=== PATIENT | female | born 1965 ===

== ENCOUNTER 2017-02-28 10:16 | Day surgery (SDC) | payer BC ==
[2017-02-28] VITALS (8 sets, daily range): BP systolic 114–126; BP diastolic 74–88
[~2017-02-28] VITALS: Ht 144.8 cm; Wt 53.1 kg
--- NOTE | 2017-02-28 06:51 | Anethesia Preoperative Eval ---
Anesthesia Pre-op PMH/ROS General Date of Evaluation: Feb 28, 2017 Time of Evaluation: 06:50 Anesthesiologist: agustin ASA Score: ASA 3 Mallampati Score Class I : Soft palate, uvula, fauces, pillars visible Class II: Soft palate, uvula, fauces visible Class III: Soft palate, base of uvula visible Class IV: Only hard plate visible Mallampati Classification: Class II Surgeon: luisa Diagnosis: colon screening Surgical Procedure: colonoscopy Anesthesia History: none Social History: smoking - nonsmoker Family History: no anesthesia problems Allergies: Coded Allergies: CHLORHEXIDINE (Verified Allergy, Intermediate, rash , 02/28/17) Uncoded Allergies: CT SCAN DYE (Allergy, Intermediate, HEADACHE, 02/28/17) Medications: see eMAR Past Medical History Pulmonary: Reports: asthma Anesthesia Pre-op Phys. Exam Physician Exam Last Vital Signs Date Time Temp Pulse Resp B/P (MAP) Pulse Ox O2 Delivery O2 Flow Rate FiO2 02/28/17 10:48 98.1 76 18 120/77 99 Room Air Constitutional: NAD Neurologic: CN 2-12 intact Cardiovascular: RRR Respiratory: CTA Gastrointestinal: S/NT/ND Airway Exam Mallampati Score: Class II MO: full Neck: supple TMD: 2fb ROM: full Teeth: intact Anesthesia Pre-op A/P Risk Assessment & Plan Assessment: asa3 Plan: mac Status Change Before Surgery: No Pre-Antibiotics Drug: SU Jacobo Feb 28, 2017 06:51
[~2017-02-28 10:16] MED LIST: LR 1000ml 1,000 ML IVLG SCH
[2017-02-28] MEDS ORDERED: PROAIR HFA8.5 GM INH (10:44)
[2017-02-28] MEDS ORDERED: ZYRTEC10 M3 ORAL (10:44)
[2017-02-28] MEDS ORDERED: SINGULAIR10 MG ORAL (10:44)
[2017-02-28] MEDS ORDERED: LR 1000ml ONE (11:30)
[2017-02-28] MEDS ORDERED: Propofol 200mg/20ml IV ONE (11:30)
[2017-02-28] MEDS ORDERED: Lidocaine 1% MPF 10mg/ml 5ml ONE (11:30)
--- NOTE | 2017-02-28 11:35 | Pre-Procedure Note/Attestation ---
Pre-Procedure Note/Attestation Complete Prior to Procedure Planned Procedure: not applicable Procedure Narrative: colon Indications for Procedure Pre-Operative Diagnosis: screening Attestation I attest that I discussed the nature of the procedure; its benefits; risks and complications; and alternatives (and the risks and benefits of such alternatives ), prior to the procedure, with the patient (or the patient's legal printing sales representative). I attest that, if there was a reasonable possibility of needing a blood transfusion, the patient (or the patient's legal printing sales representative) was given the [facility] standardized written summary, pursuant to the Berny Meenu Blood Safety Act ([place] Health and Safety Code # 1645, as amended). I attest that I re-evaluated the patient just prior to the surgery and that there has been no change in the patient's H&P, except as documented below: DIXIE BLACKBURN Feb 28, 2017 11:35
--- NOTE | 2017-02-28 12:11 | Endoscopy Procedure Note ---
Endoscopy Procedure Note Indication for Procedure: screen Procedures Performed: colonoscopy Operative Findings/Diagnosis: diverticulosis Specimen: none Pt Tolerated Procedure Well: Yes Estimated Blood Loss: none Anesthesiologist: Jody Anesthesia: MAC, moderate sedation Medication Given: see anesthesia record Implant(s) used?: No 50 yrs or older w/o bx or poly: Yes 10yrs. F/U not recommended: Yes If not recommended, why?: 10 yrs. F/U needed: Yes 18 years or older w/prev. colo: No <3yrs. since last colonoscopy: No Med reason:<3 yrs.: System Reason:<3 yrs.: Last colonoscopy >= to 3yrs: Yes DIXIE BLACKBURN Feb 28, 2017 12:11
--- NOTE | 2017-02-28 12:19 | Brief Operative Note ---
Immediate Post Operative Note Operative Note Chief Complaint: screen Pre-op Diagnosis: screening Procedure: colon , screening Post-op Diagnosis: diverticulosis Surgeon: luisa Anesthesiologist: Wilver Peoples Anesthesia: MAC Specimen: none Complications: none Condition: stable Fluids: see report Estimated Blood Loss: none Implant(s) used?: No DIXIE BLACKBURN Feb 28, 2017 12:19
--- NOTE | 2017-02-28 12:20 | Short Stay Surgery H&P ---
History of Present Illness History of Present Illness Chief Complaint see typed H&P HPI Bobo Bhakta is a 51 year old female who was admitted on for Colon Screening Patient History Allergies: Coded Allergies: CHLORHEXIDINE (Verified Allergy, Intermediate, rash , 02/28/17) Uncoded Allergies: CT SCAN DYE (Allergy, Intermediate, HEADACHE, 02/28/17) PAST MEDICAL HISTORY: Past Surgeries: Social History: Medication History Scheduled Albuterol Sulfate* (Proair Hfa*), 2 PUFFS INH NEEDED, (Reported) Cetirizine Hcl (Zyrtec), 10 MG ORAL DAILY, (Reported) Montelukast Sodium* (Singulair*), 10 MG ORAL DAILY, (Reported) Physical Exam Vital Signs Last Vital Signs Date Time Temp Pulse Resp B/P (MAP) Pulse Ox O2 Delivery O2 Flow Rate FiO2 02/28/17 10:48 98.1 76 18 120/77 99 Room Air Plan Attestation Are the patient's medical conditions optimized for surgery? DIXIE BLACKBURN Feb 28, 2017 12:20
[2017-02-28] MEDS ORDERED: LR 1000ml 1,000 ML IVLG SCH (12:29)
[2017-02-28] MEDS ORDERED: fentaNYL 100 mcg/2 mL IV PRN (12:30)
[2017-02-28] MEDS ORDERED: Atropine Inj 1mg/10ml Syr IV PRN (12:30)
[2017-02-28] MEDS ORDERED: DiphenhydrAMINE 50mg/ml Inj IVP PRN (12:30)
[2017-02-28] MEDS ORDERED: Midazolam 2mg/2ml Inj IVP PRN (12:30)
--- NOTE | 2017-02-28 12:32 | Immediate Post-Op Evaluation ---
Immediate Post-Op Evalulation Immediate Post-Op Evalulation Procedure: colonoscopy Date of Evaluation: Feb 28, 2017 Time of Evaluation: 12:30 IV Fluids: 450ml lr Blood Products: none Estimated Blood Loss: negligible Blood Pressure Systolic: 123 Blood Pressure Diastolic: 80 Pulse Rate: 62 Respiratory Rate: 18 O2 Sat by Pulse Oximetry: 100 Temperature (Fahrenheit): 97.1 Pain Score (1-10): 0 Nausea: No Vomiting: No Complications none Patient Status: awake, reacts, patent Hydration Status: adequate Drug: SU Jacobo Feb 28, 2017 12:32
--- NOTE | 2017-02-28 12:33 | 48 Hour Post Anesthesia Eval ---
Post Anesthesia Evaluation Procedure: colonoscopy Date of Evaluation: Feb 28, 2017 Time of Evaluation: 12:32 Blood Pressure Systolic: 122 0: 77 Pulse Rate: 66 Respiratory Rate: 18 Temperature (Fahrenheit): 97.1 O2 Sat by Pulse Oximetry: 100 Airway: patent Nausea: No Vomiting: No Pain Intensity: 0 Hydration Status: adequate Cardiopulmonary Status: stable Mental Status/LOC: patient returned to baseline Post-Anesthesia Complications: none Follow-up care needed: N/A SU MERCEDES Feb 28, 2017 12:33
--- NOTE | 2017-02-28 23:15 | Procedure Note ---
DATE OF PROCEDURE: 02/28/2017 SURGEON: Manju Davies MD PROCEDURE: Screening colonoscopy. PRE-ENDOSCOPIC DIAGNOSIS: Screening. POST-ENDOSCOPIC DIAGNOSIS: Mild to moderate diverticulosis. PROCEDURE IN DETAIL: The procedure, its risks, indications, alternatives, and possible complications were explained to the patient and an informed consent was obtained. The patient was then sedated in the left lateral decubitus position and a rectal exam was done. The colonoscope was then introduced through the rectum and advanced to the cecum without difficulty. The cecum was identified by the appearance of the ileocecal valve and the appendiceal orifice. The colonoscope was then gradually withdrawn and the mucosa was examined carefully. Examination of the colonic mucosa revealed scattered mild to moderate left- and right-sided diverticulosis. There were, however, no polyps or masses identified. Retroflexed view of the rectum was unremarkable. The colonoscope was removed and the patient was sent to recovery in good condition. COMPLICATIONS: None. RECOMMENDATIONS: 1. High-fiber diet. 2. Follow up with primary physician. 3. Repeat colonoscopy in 10 years. Thank you for asking me to participate in the care of this patient. Manju Davies M.D. DR: Arturo JOB#: [id number] CC: Bran Camarena M.D.
== END 2017-02-28 13:15 | disposition home or self-care (01) ==
LOC: GAS 10:16
DX: Z12.11 Encounter for screening for malignant neoplasm of colon (principal); Z91.041 Radiographic dye allergy status; Z82.49 Family history of ischemic heart disease and other diseases of the circulatory system; Z80.8 Family history of malignant neoplasm of other organs or systems; K59.00 Constipation, unspecified
CPT/HCPCS: 45378; J2704; J7120; 94003; 94150